=== PATIENT | male | born 1990 | race African-American/Black ===

== ENCOUNTER 2022-02-16 02:05 | Emergency (ER) | payer OTHER ==
[~2022-02-16] VITALS: Ht 180.3 cm; Wt 63.0 kg
[2022-02-16 02:30] VITALS: BP 128/85
--- NOTE | 2022-02-16 02:33 | NUR ---
TO LOBBY A/W BED AMBULATORY
--- NOTE | 2022-02-16 04:20 | NUR ---
SEEN AND EXAMINED BY ROSAURA
[2022-02-16] MEDS ORDERED: ACET-8386 PO (04:46)
[2022-02-16 04:50] VITALS: BP 128/85
--- NOTE | 2022-02-16 04:50 | NUR ---
Patient discharged with v/s stable. Written and verbal after care instructions given and explained. Patient alert, oriented and verbalized understanding of instructions. Ambulatory with steady gait. All questions addressed prior to discharge. ID band removed. Patient advised to follow up with PMD. Rx of HYDROCODONE given. Patient educated on indication of medication including possible reaction and side effects. Opportunity to ask questions provided and answered.
== END 2022-02-16 04:50 | disposition home or self-care (01) ==
LOC: MED 02:05
DX: M79.7 Fibromyalgia (principal); M79.10 Myalgia, unspecified site; Z79.899 Other long term (current) drug therapy
CPT/HCPCS: 99283

== ENCOUNTER 2022-12-10 10:35 | Inpatient (IN) | payer OTHER ==
[~2022-12-10] VITALS: Ht 180.3 cm; Wt 62.6 kg
[~2022-12-10 10:35] MED LIST: ACET-8905 PO; KETOROLAC 30 MG/ML VIAL ONE; ONDANSETRON 4 MG/2 ML VIAL ONE; SUCCINYLCHOLINE CHLORIDE 200 MG/10 ML VIAL IVP ONE; fentaNYL citrate 0.05 MG/ML VIAL ONE
[2022-12-10 10:45] VITALS: BP 138/89; PULSE 114; RESP 20; TEMP 101.4; O2SAT 96
[2022-12-10] MEDS ORDERED: PIPERACILLIN/TAZOBACTAM 3.375 GM in DEXTROSE 5% 50 ML IV ONE (10:45)
[2022-12-10] MEDS ORDERED: NACL 0.9% 1,000 ML IV ONE ×2 (10:45)
[2022-12-10] MEDS ORDERED: VANCOMYCIN 1,000 MG in DEXTROSE 5% 250 ML IV ONE (10:45)
[2022-12-10] MEDS ORDERED: CLINDAMYCIN 900MG/D5W PM 50 ML IV ONE (10:45)
[2022-12-10] MEDS ORDERED: MORPHINE SULFATE 2 MG/ML SYR IVP STA ×2 (10:47→11:52)
[2022-12-10 11:01] LABS: HEMATOCRIT 39.7 % (36-52); HEMOGLOBIN 13.4 g/dL (12.0-18.0); MEAN CORPUSCULAR HEMOGLOBIN 32 pg (27-31); MEAN CORPUSCULAR HGB CONC 34 g/dL (33-37); MEAN CORPUSCULAR VOLUME 93.1 fL (80-94); PLATELET COUNT (AUTO) 329 K/uL (140-450); RED BLOOD CELL COUNT(AUTO) 4.26 MIL/uL (4.20-6.10); RED CELL DISTRIBUTION WIDTH 11.9 % (11.6-13.7)
[2022-12-10] MEDS ORDERED: PIPERACILLIN/TAZOBACTAM 3.375 GM VIAL IV ONE (11:03)
[2022-12-10] MEDS ORDERED: VANCOMYCIN 1,000 MG VIAL ONE (11:04)
[2022-12-10] MEDS ORDERED: CEFEPIME 2,000 MG in DEXTROSE 5% 100 ML IV ONE (11:10)
[2022-12-10 11:25] LABS: PROTHROMBIN TIME 10.5 secs (10.8-13.4)
[2022-12-10] MEDS ORDERED: ACETAMINOPHEN EXTRA STRENGTH 500 MG TAB PO ONE (11:25)
[2022-12-10 11:26] LABS: ALBUMIN 2.9 g/dL (3.4-5.0); ANION GAP 11.7 (8-16); CARBON DIOXIDE 28.2 mmol/L (21-32); CREATININE 0.9 mg/dL (0.6-1.3); POTASSIUM 3.9 mmol/L (3.5-5.1); TOTAL BILIRUBIN 0.6 mg/dL (0.0-1.0)
[2022-12-10 11:28] LABS: BASOPHILS % (MANUAL) 0 % (0-2); BLASTS, MANUAL % 0 % (0-0); EOSINOPHILS % (MANUAL) 0 % (0-4); LYMPHOCYTES % (MANUAL) 6 % (20-46); METAMYELOCYTES % 0 % (0-0); MONOCYTES % (MANUAL) 9 % (5-12); MYELOCYTES % 0 % (0-0); OTHER CELLS,MANUAL % 0 (0-0); PROMYELOCYTES % 0 % (0-0)
--- NOTE | 2022-12-10 11:29 | NUR ---
PT REFUSES TO STAY IN BED, AGITATED, YANKED OFF ALL LEADS, WALKED TO BATHROOM AGAINST ADVICE SINCE HE HAS HIS MORPHINE. STEADY GAIT. DR. ESTRADA INFORMED AND CHARGE NURSE INFORMED. PT REQUESTING COLD WASHCLOTHS, PROVIDED TO COOL OFF ARM.
[2022-12-10] MEDS ORDERED: LORazepam 2 MG/ML VIAL IVP ONE (11:35)
--- NOTE | 2022-12-10 12:01 | NUR ---
PT BACK FROM CT, HE REUSED CT. ER INFORMED
--- NOTE | 2022-12-10 12:11 | NUR ---
DR HAGAN IN ROOM FOR EXAM.
--- NOTE | 2022-12-10 12:31 | NUR ---
PT TO CT SCAN AGAIN, MEDICATED ORDERED PRIOR TO ORDERED TEST. IV FLUIDS INFUSING WELL.
--- NOTE | 2022-12-10 12:47 | NUR ---
Hayes stonetim in ED - 12/10/22 at 1248 by [id number] PT TOLERATED BREATHING TX WELL, MILD STRIDOR STILL AUSCULATATED, ON RA @97%
[2022-12-10 13:18] LABS: BARBITURATE, URINE NEGATIVE ng/ml (NEG <=200); BENZODIAZEPINE, URINE NEGATIVE ng/mL (NEG <=200); CANNABINOID, URINE POSITIVE ng/mL (NEG <=50); COCAINE, URINE NEGATIVE ng/mL (NEG <=300); OPIATE, URINE POSITIVE ng/mL (NEG <=2000); PHENCYCLIDINE SCREEN,URINE NEGATIVE ng/mL (NEG <=25)
--- NOTE | 2022-12-10 13:41 | NUR ---
PT WITH EYES CLOSED, IN NAD. RESP EVEN AND UNLABORED, ON RA @97% IV FLUIDS INFUSING WELL.
--- NOTE | 2022-12-10 15:06 | NUR ---
PT VOIDING VIA URINAL, VSS.
[2022-12-10] MEDS ORDERED: ZOLPIDEM 5 MG TAB PO PRN (16:10)
[2022-12-10] MEDS ORDERED: LORazepam 1 MG TAB PO PRN (16:10)
[2022-12-10] MEDS ORDERED: VANCOMYCIN PER PHARMACY MC PRN ×2 (16:10→17:55)
[2022-12-10] MEDS ORDERED: HYDROcodone/APAP 5/325 MG 1 TAB TAB PO PRN (16:10)
[2022-12-10] MEDS ORDERED: ONDANSETRON 4 MG/2 ML VIAL IVP PRN (16:10)
[2022-12-10] MEDS ORDERED: ACETAMINOPHEN 325 MG TAB PO PRN (16:10)
--- NOTE | 2022-12-10 16:50 | NUR ---
PT BACK FROM CTA, PER TECH, UNABLE TO COMPLETE, PT WA SMOVING TOO MUCH. DR GRIMALDO INFORMED.
--- NOTE | 2022-12-10 17:11 | NUR ---
ANESTHESIOLOGIST, DR JATIN ARROYO CALLED, UPDATED ON STATUS, LABS AND VITALS. HE RQUEASTED TO KNOW DRUG HISTORY. PER PT, HE SMOKES METH ABOUT ONCE A MONTH FOR THE LAST YEAR. ORDERS FOR ECHOCARDIOGRAM RECEIVED.
--- NOTE | 2022-12-10 17:19 | NUR ---
ATTEMPTED TO PUT ECHO ORDER, HOWEVER REQUESTING TUBING OILER NAME. ER UNAWARE, CN UNAWARE. JUSTIN INFORMED TO PAGE AGAIN FOR CLARIFICARTION.
--- NOTE | 2022-12-10 17:36 | NUR ---
PT REFUSES VITALS AT THIS TIME, REFUSES IV FLUIDS. HE'S STANDING BY BED, GOING THRU OWN BAGPACK "IM LOOKING FOR MY PHONE". SALVADOR KEITH NOTIFIED.
--- NOTE | 2022-12-10 18:18 | NUR ---
DINNER TRAY GIVEN, OK PER MD ARROYO
--- NOTE | 2022-12-10 18:21 | NUR ---
UPDATE: ALEXANDRA FOR DR ARROYO TO CALL BACK FOR CLARIFICATION ORDERS FOR ECHO. SALVADOR KEITH INFORMED.
[2022-12-10] MEDS: LACTATED RINGERS 1,000 ML IV SCH (18:56)
--- NOTE | 2022-12-10 19:01 | NUR ---
GAVE PT DINNER, ATE 100%, AFTERWARDS, PT ACCEPTED FOR ME TO CONNECT IV FLUIDS AND TAKE VITALS. PT STTAES "IM IN PAIN". UPON GETTING DILAUDID AND GOING IN TO ADMNISTER, NOTICED PT WITH EYES CLOSED AND SLEEPING. WILL NOT GIVE IV DILAUDID AT THIS TIME. VSS.
--- NOTE | 2022-12-10 19:06 | NUR ---
DR GRECIA WILLIS BEING PAGED AGAIN BY JUSTIN
--- NOTE | 2022-12-10 19:20 | NUR ---
PT ON BED. NOT IN DISTRESS. AWAKE AND RESPONSIVE. WITH COMPLAIN OF PAIN. ON MONITOR
--- NOTE | 2022-12-10 19:41 | NUR ---
TALKED TO DR. LACY FOR STAT CT SCAN WITH CONTRAST. CALLED THE CT SCAN DEPARTMENT AND ASKED FOR CT SCAN FOR CONTRAST. PER CUSTOMER SERVICE TELLER, PT. HAD CONTRAST THIS MORNING BUT IMAGING WAS NOT SUCCESSFUL DUE TO UNCOOPERATIVE PT AND IT HAS TO BE [address] HOU[address] AFTER THE NEXT CT SCAN.
[2022-12-10 20:25] VITALS: BP 131/98; PULSE 102; RESP 18; TEMP 97.5; O2SAT 100
--- NOTE | 2022-12-10 20:25 | NUR ---
Patient will be admitted to care of DR. MONROY. Admited to TELEMETRY. Will go to room 120A. Belongings list completed. Report to LILIA HARRIS. LILIA HARRISVERBALIZED UNDERSTANDING AND NO FURTHER QUESTION.
--- NOTE | 2022-12-10 21:00 | NUR ---
Admitted from , with chief complaint of L HAND PAIN , 32 y/o ,Male, Restless, pt asking to have a shower. on room air, breathing even and unlabored. L hand swollen, warm to touch. pt reports r middle finger fracture from injury.iv on r ac, g 20,patent and intact.poc discussed. all precautions in place. call light within reach. will continue to monitor. oriented to call light, bed, phone,television, bathroom, smoking policy, visiting hours, procedures, ID bracelet on. Belongings list checked.
[2022-12-10] MEDS: CLINDAMYCIN 150 MG CAP PO SCH (21:08)
[2022-12-10] MEDS: HYDROmorphone 1 MG/ML AMP IVP PRN (21:29)
[2022-12-11] VITALS: BP 125/73; PULSE 112; PULSE 99; RESP 18; TEMP 98; O2SAT 100
[2022-12-11] MEDS ORDERED: VANCOMYCIN 1,000 MG in DEXTROSE 5% 250 ML IV SCH ×2 (00:30→10:00)
[2022-12-11] MEDS ORDERED: VANCOMYCIN 1,000 MG VIAL ONE ×3 (00:43→17:19)
--- NOTE | 2022-12-11 01:30 | NUR ---
CALLED PHARMACY IF WE STILL GIVE THE VANCOMYCIN. SPOKE WITH SHA AND SAID THAT WE SHOULD STILL ADMINISTER THE VANCOMYCIN.
--- NOTE | 2022-12-11 03:00 | NUR ---
PT ASLEEP. NO S/SX OF DISTRESS NOTED. BREATHING EVEN AND UNLABORED. ALL PRECAUTIONS IN PLACE. CALL LIGHT WITHIN REACH. WILL CONTINUE TO MONITOR.
[2022-12-11] MEDS: HYDROmorphone 1 MG/ML AMP IVP PRN ×2 (03:57→17:48)
[2022-12-11 04:00] VITALS: BP 133/89; PULSE 114; RESP 18; TEMP 97.8; O2SAT 100
[2022-12-11] MEDS: CLINDAMYCIN 150 MG CAP PO SCH ×3 (04:06→20:58)
[2022-12-11] MEDS: LACTATED RINGERS 1,000 ML IV SCH ×3 (04:40→17:45)
[2022-12-11 06:05] LABS: BASOPHILS % (AUTO) 0.1 % (0.0-2.0); EOSINOPHILS % (AUTO) 0.1 % (0.0-4.0); HEMATOCRIT 38.2 % (36-52); HEMOGLOBIN 13.4 g/dL (12.0-18.0); LYMPHOCYTES # (AUTO) 0.6 K/uL (2.0-11.5); MEAN CORPUSCULAR HEMOGLOBIN 32 pg (27-31); MEAN CORPUSCULAR HGB CONC 35 g/dL (33-37); MEAN CORPUSCULAR VOLUME 91.1 fL (80-94); MONOCYTES # (AUTO) 1.4 K/uL (0.8-1.0); MONOCYTES % (AUTO) 9.3 % (1.7-9.3); NEUTROPHILS # (AUTO) 13.2 K/uL (1.8-7.7); PLATELET COUNT (AUTO) 345 K/uL (140-450); RED BLOOD CELL COUNT(AUTO) 4.19 MIL/uL (4.20-6.10); RED CELL DISTRIBUTION WIDTH 12.4 % (11.6-13.7); WHITE BLOOD COUNT (AUTO) 15.3 K/uL (4.8-10.8)
[2022-12-11 06:29] LABS: ALBUMIN 2.4 g/dL (3.4-5.0); ANION GAP 9.4 (8-16); CARBON DIOXIDE 28.3 mmol/L (21-32); CREATININE 0.7 mg/dL (0.6-1.3); MAGNESIUM 1.8 mg/dL (1.8-2.4); PHOSPHORUS 2.7 mg/dL (2.5-4.9); POTASSIUM 3.7 mmol/L (3.5-5.1); TOTAL BILIRUBIN 0.4 mg/dL (0.0-1.0)
--- NOTE | 2022-12-11 06:59 | NUR ---
PT IS STABLE. NO ACUTE EVENTS THROUGHOUT THE NIGHT. ALL NEEDS MET. NO S/SX OF DISTRESS AT THE MOMENT. ALL PRECAUTIONS IN PLACE. CALL LIGHT WITHIN REACH. WILL ENDORSE TO MORNING SHIFT NURSE.
[2022-12-11 07:10] LABS: NEUTROPHILS % (AUTO) 86.5 % (42.2-75.2)
--- NOTE | 2022-12-11 07:15 | NUR ---
RECEIVED BEDSIDE REPORT FROM CHARTER PILOT NURSE. PT IS ASLEEP, AWAKEN BY NAME. NO SIGNS OF DISTRESS, CALL LIGHT WITHIN REACH.
[2022-12-11 08:00] VITALS: BP 144/83; PULSE 103; PULSE 94; RESP 20; TEMP 100.7; O2SAT 100; O2SAT 99
[2022-12-11] MEDS ORDERED: BUPIVACAINE-MPF 0.25% 30 ML VIAL INJ ONE ×2 (08:11→09:58)
[2022-12-11] MEDS ORDERED: fentaNYL citrate 0.05 MG/ML VIAL ONE (08:33)
[2022-12-11] MEDS ORDERED: PROPOFOL 200 MG/20 ML VIAL IV ONE (08:43)
[2022-12-11] MEDS ORDERED: SUCCINYLCHOLINE CHLORIDE 200 MG/10 ML VIAL IVP ONE (08:44)
[2022-12-11] MEDS ORDERED: ENOXAPARIN 40 MG/0.4 ML SYR SUBQ SCH (09:00)
[2022-12-11] MEDS: DOCUSATE SODIUM 100 MG GELCAP PO SCH (09:00)
[2022-12-11] MEDS: ENOXAPARIN 40 MG/0.4 ML SYR SUBQ SCH (09:00)
--- NOTE | 2022-12-11 09:22 | NUR ---
PATIENT HAS BEEN SCREENED AND CATEGORIZED LOW NUTRITION RISK. PATIENT WILL BE SEEN WITHIN 7 DAYS OF ADMISSION. 12/10/22-12/17/[address]
[2022-12-11] MEDS ORDERED: ONDANSETRON 4 MG/2 ML VIAL ONE (09:29)
[2022-12-11] MEDS ORDERED: KETOROLAC 30 MG/ML VIAL ONE (09:29)
[2022-12-11] MEDS ORDERED: METOCLOPRAMIDE 10 MG/2 ML INJ VIAL IVP PRN (10:28)
[2022-12-11] MEDS ORDERED: LABETALOL 20 MG/4 ML VIAL IVP PRN (10:29)
[2022-12-11] MEDS ORDERED: hydrALAZINE 20 MG/ML VIAL IVP PRN (10:29)
[2022-12-11] MEDS ORDERED: HYDROmorphone 1 MG/ML AMP IVP PRN (10:30)
--- NOTE | 2022-12-11 11:00 | NUR ---
PT ARRIVED TO [facility] FROM OR. PT IS AWAKE, WITH VS T: 98.4 BP: 142/80 HR:79 RR:16O2 SAT 100%. NO SIGN OF DISTRESS, DRESSINGS INTACT, CALL LIGHT WITHIN REACH.
[2022-12-11 12:00] VITALS: BP 126/80; PULSE 100; PULSE 94; RESP 18; TEMP 97.4; O2SAT 100
[2022-12-11 16:00] VITALS: BP 129/75; PULSE 84; RESP 18; TEMP 98.6; O2SAT 99
[2022-12-11] MEDS: VANCOMYCIN 1,000 MG in DEXTROSE 5% 250 ML IV SCH (17:59)
--- NOTE | 2022-12-11 18:05 | NUR ---
NO ALEXANDROO FROM PHARMACY. TOOK 1 GM IN THE OMNICELL, RECONSTITUTED IN 20ML STERILE WATER IN 5% DEXTROSE 250ML.
--- NOTE | 2022-12-11 18:30 | NUR ---
PT STILL REFUSING CT SCAN WITH CONTRAST EVEN AFTER EXPLAINING. HE SAID HE WANTS TO SLEEP AND REST.
--- NOTE | 2022-12-11 19:12 | NUR ---
GAVE BEDSIDE REPORT TO HEAVY EQUIPMENT ENGINE MECHANIC NURSE FOR CONTINUITY OF CARE.PT IS ASLEEP, NO SIGNS OF DISTRESS. CALL LIGHT WITHIN REACH.
--- NOTE | 2022-12-11 19:30 | NUR ---
RECEIVED PT FROM DAY RN FOR CONTINUITY OF CARE. PT ASLEEP AT BED, AROUSABLE BY VOICE. ON ROOM AIR,BREATHING EVEN AND UNLABORED. PT HAD A SURGERY IN THE MORNING. LEFT ARM WITH DRESSING,DRY AND INTACT. ALL PRECAUTIONS IN PLACE. CALL LIGHT WITHIN REACH. WILL CONTINUE TO MONITOR.
[2022-12-11 20:00] VITALS: BP 126/79; PULSE 102; RESP 20; TEMP 99.1; O2SAT 100; O2SAT 99
--- NOTE | 2022-12-11 20:45 | NUR ---
SCHEDULED MEDICATIONS GIVEN. ASKED PT REGARDING CT OF L ARM, PT IS STILL REFUSING. EXPLAINED THE IMPORTANCE OF THE DIAGNOSTIC EXAM. PT VERBALIZED UNDERSTANDING AND STILL DOESN'T WANT TO DO IT TONIGHT.
[2022-12-11] MEDS: LORazepam 2 MG/ML VIAL IVP PRN (20:58)
--- NOTE | 2022-12-12 00:48 | NUR ---
SPOKE TO PT'S MOTHER, STATED THAT HER SON HAS HX OF SCHIZOPRENIA A Addendum: 12/12/22 at 0050 by Alirio Pena RN SPOKE TO PT'S MOTHER, STATED THAT HER SON HAS HX OF SCHIZOPHRENIA. AND HAS BEEN OFF MEDS FOR A WHILE NOW. DOCTOR WAS INFORMED AND ORDERED TELE PSYCH CONSULT. CALLED TELE PSYCH AND WAS SCHEDULED FOR Monday.
[2022-12-12] MEDS: HYDROmorphone 1 MG/ML AMP IVP PRN (01:07)
[2022-12-12] MEDS ORDERED: VANCOMYCIN 1,000 MG VIAL ONE (01:57)
[2022-12-12] MEDS: VANCOMYCIN 1,000 MG in DEXTROSE 5% 250 ML IV SCH ×2 (02:14→10:47)
[2022-12-12] MEDS: CLINDAMYCIN 150 MG CAP PO SCH ×2 (04:43→15:09)
--- NOTE | 2022-12-12 05:45 | NUR ---
PATIENT REFUSED BLOOD DRAW. EXPLAINED IMPORTANCE OF THE PROCEDURE. PT STILL REFUSED.
[2022-12-12] MEDS: LACTATED RINGERS 1,000 ML IV SCH (06:30)
--- NOTE | 2022-12-12 07:08 | NUR ---
receive the patinet from the shift superintendent caustic cresylate rn in rm 120A [id number] with admitting diagnosis of left hand cellulitis . s/p incision and drainage arlyn 2 . will continue to monitor . still on antibiotics , pain medications
[2022-12-12 08:02] VITALS: PULSE 98; RESP 19; O2SAT 99
[2022-12-12] MEDS: LORazepam 2 MG/ML VIAL IVP PRN (09:10)
[2022-12-12] MEDS: DOCUSATE SODIUM 100 MG GELCAP PO SCH (09:11)
[2022-12-12] MEDS: ENOXAPARIN 40 MG/0.4 ML SYR SUBQ SCH (09:12)
[2022-12-12 09:37] LABS: BASOPHILS # (AUTO) 0.1 K/uL (0.00-0.22); BASOPHILS % (AUTO) 0.5 % (0.0-2.0); EOSINOPHILS # (AUTO) 0.1 K/uL (0-0.4); EOSINOPHILS % (AUTO) 0.5 % (0.0-4.0); HEMATOCRIT 38.7 % (36-52); LYMPHOCYTES # (AUTO) 0.9 K/uL (2.0-11.5); LYMPHOCYTES % (AUTO) 7.8 % (20.5-51.1); MEAN CORPUSCULAR HEMOGLOBIN 31 pg (27-31); MEAN CORPUSCULAR HGB CONC 34 g/dL (33-37); MEAN CORPUSCULAR VOLUME 92.4 fL (80-94); MONOCYTES % (AUTO) 8.5 % (1.7-9.3); NEUTROPHILS # (AUTO) 9.7 K/uL (1.8-7.7); NEUTROPHILS % (AUTO) 82.7 % (42.2-75.2); PLATELET COUNT (AUTO) 382 K/uL (140-450); RED BLOOD CELL COUNT(AUTO) 4.19 MIL/uL (4.20-6.10); RED CELL DISTRIBUTION WIDTH 12.5 % (11.6-13.7); WHITE BLOOD COUNT (AUTO) 11.7 K/uL (4.8-10.8)
[2022-12-12 10:04] LABS: CARBON DIOXIDE 30.8 mmol/L (21-32); CREATININE 0.7 mg/dL (0.6-1.3); MAGNESIUM 2.1 mg/dL (1.8-2.4); POTASSIUM 3.8 mmol/L (3.5-5.1); TOTAL BILIRUBIN 0.2 mg/dL (0.0-1.0)
--- NOTE | 2022-12-12 14:00 | NUR ---
WOUND CARE EVALUATION NOTES: REASON FOR EVALUATION: LEFT ARM CELLULITIS WOUND ASSESSMENT COMPLETED ON THIS 32 Y/O MALE ADMITTED TO [facility] UNIT FOR LEFT ARM SEVERE CELLULITIS. PATIENT IS HOMELESS. PAST MEDICAL HISTORY INCLUDES FIBROMYALGIA, AND POLYSUBSTANCE ABUSE. ALL ABOVE INFORMATION WAS OBTAINED FROM THE ADMISSION H&P. ORAL MUCOSAL MEMBRANES DRY. LEFT UPPER ARM ANDREW BANDAGE DRESSINGS INTACT WITHOUT SOILAGE OR DRAINAGE. ABLE TO SELF TURN AND AMBULATE INDEPENDENTLY. PLAN OF CARE AND PRESSURE PREVENTATIVE MEASURES DISCUSSED WITH PATIENT AND PRIMARY RN. PATIENT REINFORCEMENT NEEDED. PATIENT ADMITTED WITH LEFT UPPER ARM CELLULITIS. COMORBIDITIES RELATED TO FURTHER SKIN BREAKDOWN SUCH S/S OF DEHYDRATION. INTEGUMENTARY: - LEFT UPPER ARM ABSCESS AND CELLULITIS S/P FASCIOTOMY AND CARPAL TUNNEL RELEASE SURGERY ON 12/11/[address] HAGAN. ANDREW BANDAGE DRESSING INTACT, NO HEAVY SOILING OR DRAINAGE. DR. HAGAN TO FOLLOW-UP ON DRESSING CHANGES. RECOMMENDATIONS: - LEFT UPPER ARM ABSCESS AND CELLULITIS S/P FASCIOTOMY AND CARPAL TUNNEL RELEASE SURGERY ON 12/11/22: ANDREW BANDAGE DRESSING INTACT, NO HEAVY SOILING OR DRAINAGE. DR. HAGAN TO FOLLOW-UP ON DRESSING CHANGES. - ASSIST WITH ADLS THROUGHOUT THE DAY NEEDED. - KEEP SKIN DRY AND CLEAN AT ALL TIMES. - RD CONSULT RECOMMENDATIONS DISCUSSED WITH PRIMARY RN. WILL FOLLOW-UP PATIENT Q7-10 DAYS AND PRN. PLEASE CONTACT WOUND CARE NURSE FOR ANY CONCERNS AND CHANGES IN WOUND CONDITION.
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
--- NOTE | 2022-12-12 17:48 | NUR ---
patient left against medical advice . aware
[2022-12-12] MEDS ORDERED: MIRTAZAPINE 15 MG TAB PO SCH (21:00)
[2022-12-12] MEDS ORDERED: OLANZapine 5 MG TAB PO SCH (21:00)
== END 2022-12-12 18:00 | disposition left against medical advice (07) | DRG 710 ==
LOC: MED 10:35 → MTU 16:32
PROVIDERS: ADMIT Hospitalist; ATTEND Hospitalist
PROC: 0LB80ZZ Excision of Left Hand Tendon, Open Approach (ICD-10-PCS; 2022-12-11)
PROC: 0LB60ZZ Excision of Left Lower Arm and Wrist Tendon, Open Approach (ICD-10-PCS; 2022-12-11)
PROC: 0KND0ZZ Release Left Hand Muscle, Open Approach (ICD-10-PCS; 2022-12-11)
PROC: 0KND0ZZ Release Left Hand Muscle, Open Approach (ICD-10-PCS; 2022-12-11)
PROC: 0KND0ZZ Release Left Hand Muscle, Open Approach (ICD-10-PCS; 2022-12-11)
PROC: 0KND0ZZ Release Left Hand Muscle, Open Approach (ICD-10-PCS; 2022-12-11)
PROC: 01N50ZZ Release Median Nerve, Open Approach (ICD-10-PCS; principal; 2022-12-11 08:00)
DX: A41.9 Sepsis, unspecified organism (principal); G92.8 Other toxic encephalopathy; E44.0 Moderate protein-calorie malnutrition; E87.1 Hypo-osmolality and hyponatremia; M79.7 Fibromyalgia; L03.114 Cellulitis of left upper limb; F20.9 Schizophrenia, unspecified; L02.512 Cutaneous abscess of left hand; Z20.822 Contact with and (suspected) exposure to COVID-19; Z88.0 Allergy status to penicillin; Z79.899 Other long term (current) drug therapy; Z59.00 Homelessness unspecified; Z68.1 Body mass index [BMI] 19.9 or less, adult
CPT/HCPCS: 36415; 71045; 73110; 73130; 73200; 80053; 80202; 80305; 83605; 83735; 84100; 85025; 85610; 85651; 85730; 86140; 87040; 87070; 87075; 87081; 87205; 96361; 96365; 96375; 96376; 99291; 99292; J0330; J0692; J1170; J1650; J1885; J2060; J2270; J2405; J2543; J2704; J3010; J3370; J3490; J7060; J7120; Q0092

== ENCOUNTER 2022-12-15 22:50 | Emergency (ER) | payer OTHER ==
[~2022-12-15] VITALS: Ht 180.3 cm; Wt 59.0 kg
[~2022-12-15 22:50] MED LIST changes: -KETOROLAC 30 MG/ML VIAL ONE; -ONDANSETRON 4 MG/2 ML VIAL ONE; -SUCCINYLCHOLINE CHLORIDE 200 MG/10 ML VIAL IVP ONE; -fentaNYL citrate 0.05 MG/ML VIAL ONE
[2022-12-15 23:16] VITALS: BP 126/92; PULSE 102; RESP 16; TEMP 97.8; O2SAT 100
[2022-12-16] MEDS ORDERED: SULF-59 PO (02:03)
[2022-12-16 02:23] VITALS: BP 126/92; PULSE 102; RESP 16; TEMP 97.8; O2SAT 100
--- NOTE | 2022-12-16 02:23 | NUR ---
Patient does not wish to proceed with medical care recommended by DR. PUENTE. Patient given information related to possible complications, up to and including , which could occur as a result of leaving hospital at this time. Patient verbalizes understanding of risks involved leaving against medical advice. Patient has signed AMA form.
== END 2022-12-16 02:23 | disposition left against medical advice (07) ==
LOC: MED 22:50
DX: L03.114 Cellulitis of left upper limb (principal); Z59.00 Homelessness unspecified; E11.9 Type 2 diabetes mellitus without complications; Z79.899 Other long term (current) drug therapy; Z79.2 Long term (current) use of antibiotics; Z88.0 Allergy status to penicillin
CPT/HCPCS: 99281; 99282